=== PATIENT | female | born 1950 | race Hispanic/Latino ===

== ENCOUNTER 2017-03-17 09:13 | Outpatient (CLI) | payer MEDICARE, OTHER ==
--- NOTE | 2017-03-20 11:52 | Mammography Report ---
BONE DENSITY STUDY: Patient on aromatase inhibitor. DEFINITIONS: BMD = Bone Mineral Density T-score = BMD related to mean peak bone mass of young adult (mean expressed in Standard Deviation) Z-score = Age matched BMD expressed in SD World Health Organization (WHO) Diagnostic Criteria Normal T-score > -1 SD Osteopenia T-score between -1 and -2.4 SD Osteoporosis T-score -2.5 SD or below FINDINGS: The weighted average BMD of lumbar spine L2-L3 is 0.901 with a T-score of -1.4. L1 and L4 are sclerotic. The weighted average BMD of the left hip is 0.877 with a T-score of -0.5. The femoral neck BMD is 0.731 with a T. value score of -1.1. IMPRESSION: The patient's average T-score is diagnostic for osteopenia and average relative risk for fracture. NOTE: BMD is not the only risk factor for fracture; also consider factors such as the patient's age, risk of falling, previous osteoporotic fracture, family history of osteoporotic fractures, current smoker, and low body weight. Aguilar's triangle is a region of interest in femur, predominantly of trabecular bone. It is not a true anatomic site, and ISCD does not recommend its use clinically.
== END 2017-03-17 09:14 | disposition home or self-care (01) ==
LOC: SPVWC 09:13
PROVIDERS: ATTEND Internal Medicine Hematology & Oncology
DX: M85.88 Other specified disorders of bone density and structure, other site (principal); C50.812 Malignant neoplasm of overlapping sites of left female breast; Z78.0 Asymptomatic menopausal state; Z79.811 Long term (current) use of aromatase inhibitors
CPT/HCPCS: 77080

== ENCOUNTER 2018-05-24 10:27 | Outpatient (CLI) | payer MEDICARE ==
--- NOTE | 2018-05-29 12:23 | PET Report ---
PET SB TO MT INITIAL: HISTORY: Malignant neoplasm of left breast. TECHNIQUE: 14.3 millicuries F-18 FDG was administered intravenously. Noncontrast CT images and PET images were obtained from the skull base to the proximal thighs. Fused images were reviewed on a workstation. The patient's blood glucose level measured 97. COMPARISON: No previous PET/CT at this facility. FINDINGS: BRAIN: physiologic FDG uptake in the imaged brain. NECK: physiologic FDG uptake. CHEST WALL: physiologic FDG uptake. Bilateral breast replacements appear intact. No recurrent chest wall mass. MEDIASTINUM: physiologic FDG uptake. LUNGS: physiologic FDG uptake. PLEURA/PERICARDIUM: physiologic FDG uptake. THORACIC LYMPH NODES: physiologic FDG uptake. HEPATOBILIARY: physiologic FDG uptake. Mean liver SUV measures 4.3. PANCREAS: physiologic FDG uptake. SPLEEN: physiologic FDG uptake. ADRENAL GLANDS: physiologic FDG uptake. KIDNEYS/RENAL COLLECTING SYSTEMS: physiologic FDG uptake. BOWEL/MESENTERY: physiologic FDG uptake. PELVIC VISCERA: physiologic FDG uptake. Hysterectomy changes are suspected ABDOMINAL/PELVIC LYMPH NODES: physiologic FDG uptake. MUSCULOSKELETAL: physiologic FDG uptake. IMPRESSION: Negative PET/CT. No evidence for disease recurrence or metastasis.
== END 2018-05-24 10:28 | disposition home or self-care (01) ==
LOC: PET 10:27
PROVIDERS: ATTEND Internal Medicine Hematology & Oncology
DX: C50.812 Malignant neoplasm of overlapping sites of left female breast (principal); K21.9 Gastro-esophageal reflux disease without esophagitis; I10 Essential (primary) hypertension; M19.90 Unspecified osteoarthritis, unspecified site; E03.9 Hypothyroidism, unspecified; Z87.891 Personal history of nicotine dependence; Z90.710 Acquired absence of both cervix and uterus; Z90.12 Acquired absence of left breast and nipple
CPT/HCPCS: 78815; 82962; A9552

== ENCOUNTER 2018-08-29 11:56 | Outpatient (CLI) | payer MEDICARE ==
--- NOTE | 2018-08-29 13:01 | XRay Report ---
XRAY RIGHT SHOULDER THREE VIEWS: 08/29/18 11:56:00 CLINICAL: Right shoulder pain. History of left breast cancer. FINDINGS: Mild osteopenia. Normal glenohumeral joint. Mild AC joint arthritis. The scapula, clavicle and ribs are normal. No fracture or dislocation. No bone lesion. The right lung is normally expanded and clear. A right [id number] with tip in the SVC. Normal soft tissues. IMPRESSION: Mild osteopenia and mild acromioclavicular joint arthritis.
--- NOTE | 2018-08-29 13:07 | XRay Report ---
XRAY RIGHT RIBS THREE VIEWS: 08/29/18 11:56:00 CLINICAL: Right rib pain. History of left breast cancer. FINDINGS: Mild deformity of the right sixth and seventh ribs laterally on the oblique view. There is also a cortical offset and questionable mild callus. No lytic or sclerotic bone lesions are identified. No pleural effusion and no lung lesion identified. No pneumothorax. IMPRESSION: Subacute traumatic fractures of the right sixth and seventh ribs with a suggestion of early callus formation. No underlying bone lesions are identified.
== END 2018-08-29 11:57 | disposition home or self-care (01) ==
LOC: SPVIMAG 11:56
PROVIDERS: ATTEND Internal Medicine Hematology & Oncology
DX: S22.41XA Multiple fractures of ribs, right side, initial encounter for closed fracture (principal); M19.011 Primary osteoarthritis, right shoulder; M85.811 Other specified disorders of bone density and structure, right shoulder; C50.812 Malignant neoplasm of overlapping sites of left female breast; I10 Essential (primary) hypertension; K21.9 Gastro-esophageal reflux disease without esophagitis; E03.9 Hypothyroidism, unspecified; X58.XXXA Exposure to other specified factors, initial encounter; Y93.89 Activity, other specified; Y92.89 Other specified places as the place of occurrence of the external cause; Y99.8 Other external cause status

== ENCOUNTER 2020-01-30 07:39 | Outpatient (CLI) | payer MEDICARE ==
--- NOTE | 2020-01-30 12:11 | PET Report ---
PET/CT HISTORY: C50.812. Breast cancer restaging exam TECHNIQUE: The patient weighed 195 lbs. Blood sugar was 116 mg/dL. The patient was injected with 1 5.3 mCi of FDG in the right antecubital fossa and imaging was started at 9:30 AM. The patient was im aged from the skull base to the thighs. COMPARISON: PET scan from 05/24/[address] chest from 10/14/2015 FINDINGS: FDG findings: No pathologic regional tracer uptake identified. Non-FDG findings: No new significant incidental findings in the chest, abdomen, or pelvis. Breast im plants are intact. Emphysematous changes again seen in the lungs with largely unchanged pleural-based right basilar nodule measuring approximately 4 mm which has been present since at least 2016. IMPRESSION: 1. Stable exam with no metastatic disease identified. 2. Largely unchanged pleural-based 4 mm nodule in the right lower lobe which has been stable for roug hly 4 years and therefore likely benign. Signer Name: Romeo Domínguez MD Signed: 01/30/2020 12:07 PM Workstation Name: [id number]
== END 2020-01-30 07:40 | disposition home or self-care (01) ==
LOC: PET 07:39
PROVIDERS: ATTEND Internal Medicine Hematology & Oncology
DX: R91.1 Solitary pulmonary nodule (principal); C50.812 Malignant neoplasm of overlapping sites of left female breast; R52 Pain, unspecified
CPT/HCPCS: 78815; 82962; A9552

== ENCOUNTER 2020-12-03 08:09 | Outpatient (CLI) | payer MEDICARE ==
--- NOTE | 2020-12-03 11:40 | PET Report ---
PET-CT SCAN INDICATION / CLINICAL INFORMATION: C50.812. STAGING: Re-staging TECHNIQUE: Tumor imaging, positron emission tomography (PET) with concurrently acquired computed tomography (CT) for attenuation correction and anatomical localization; Skull Base to Mid Thigh - DOSE: 14.4 mCi F-18 FDG was administered IV per protocol in the right AC - GLUCOSE: Patient's blood glucose at that time was (mg/dL): 104 - UPTAKE TIME: PET scan performed approximately 60 minutes after radiotracer administration. - CT SCAN DESCRIPTION: No oral or IV contrast. All CT scans at this location are performed using CT d ose reduction for ALARA by means of automated exposure control. COMPARISON: PET/CT from 01/30/2020. FINDINGS: HEAD / NECK: No abnormal radiotracer uptake in the neck. CHEST: No abnormal radiotracer uptake in the chest. Bilateral breast implants are intact. Moderate to severe emphysema is again seen throughout the lungs. Previously described tiny right basilar nodule is not well seen. No new nodule identified. ABDOMEN / PELVIS: No abnormal radiotracer uptake in the abdomen. 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 LOWER EXTREMITIES: No abnormal radiotracer uptake in the visualized lower extremities. No significant CT abnormality. SKELETAL STRUCTURES: No hypermetabolic bone lesions. Remote compression fracture of L1 is unchanged. No acute osseous findings. ADDITIONAL FINDINGS: No additional significant findings. IMPRESSION: Negative PET. No FDG avid neoplastic disease. Signer Name: Clayton Spaulding MD Signed: 12/03/2020 11:36 AM Workstation Name: [id number]
--- NOTE | 2020-12-03 16:01 | Mammography Report ---
DEXA BONE DENSITY SCAN INDICATION / CLINICAL INFORMATION: OSTEOPENIA / ON BISPHOSPHATE THERAPY. 70 years Female COMPARISON: None available. LUMBAR SPINE, L1, L3 and L4: - Bone mineral density (BMD) = 1.202 g/cm2. - T-score = 1.4 - Z-score = 3.4 Change (%) since most recent prior (if available): None available. LEFT HIP, NECK : - Bone mineral density (BMD) = 0.696 g/cm2. - T-score = -1.4 - Z-score = 0.4 Change (%) since most recent prior (if available): None available. IMPRESSION: 1. WHO Classification: Osteopenia. Fracture Risk: Increased. Note: 10-Year Fracture Risk (FRAX) not reported. This DEXA unit lacks FRAX functionality. BMD Reporting Guidelines (ISCD, 2015) BMD Reporting in Postmenopausal Women and in Men Age 50 and Older - T-scores are preferred. - The WHO densitometric classification is applicable. BMD Reporting in Females Prior to Menopause and in Males Younger Than Age 50 - Z-scores, not T-scores, are preferred. This is particularly important in children. - A Z-score of -2.0 or lower is defined as below the expected range for age, and a Z-score above -2.0 is within the expected range for age. - Osteoporosis cannot be diagnosed in men under age 50 on the basis of BMD alone. - The WHO diagnostic criteria may be applied to women in the menopausal transition. http://www.iscd.org/official-positions/5511-podh-tipaeten-positions-adult/ Signer Name: Ricardo Jerez MD Signed: 12/03/2020 3:57 PM Workstation Name: [email or web address]
== END 2020-12-03 08:10 | disposition home or self-care (01) ==
LOC: PET 08:09
PROVIDERS: ATTEND Internal Medicine Hematology & Oncology
DX: C50.812 Malignant neoplasm of overlapping sites of left female breast (principal); J43.9 Emphysema, unspecified; R52 Pain, unspecified; M85.88 Other specified disorders of bone density and structure, other site; Z79.83 Long term (current) use of bisphosphonates
CPT/HCPCS: 77080; 78815; 82962; A9552